=== PATIENT | female | born 1970 | race Caucasian/White ===

== ENCOUNTER 2019-09-13 11:27 | Emergency (ER) | payer BC ==
[2019-09-13] MEDS: Ketorolac 60 MG/2 ML SDV IM ONE (12:01)
[2019-09-13] MEDS: Meclizine 25 MG Tab PO ONE (12:01)
[2019-09-13] MEDS: Ondansetron 4 MG Tab.DIS PO ONE (12:01)
--- NOTE | 2019-09-13 12:02 | EDM.PDOC ---
ED HPI GENERAL MEDICAL PROBLEM - General Chief Complaint: General Stated Complaint: LIGHT HEADED, SHAKY, BLOOD PRESSURE HIGH Time Seen by Provider: 09/13/19 11:40 Source of Information: Reports: Patient History Limitations: Reports: No Limitations - History of Present Illness INITIAL COMMENTS - FREE TEXT/NARRATIVE: Patient presented with the ff health issues to the ED: She was started with z- arin today and too the first dose this morning wh empty stomach and now c/o nausea but no vomiting. Denies any abdominal pain. She also c/o dizziness after having a cold for 2 days. there is no associated fever or chills. Lastl, she c/ o of a flare up of her chronic back oain, she took tylenol without any relief. - Related Data Allergies Allergy/AdvReac Type Severity Reaction Status Date / Time amoxicillin Allergy Other Verified 09/13/19 11:41 Home Meds: Home Meds Albuterol Sulfate [Albuterol Sulfate Hfa] 2 puff IH Q4H PRN 09/13/19 [History] Azithromycin [Zithromax] 500 mg PO DAILY 09/13/19 [History] Cetirizine [ZyrTEC] 10 mg PO DAILY PRN 09/13/19 [History] Ibuprofen [Motrin] 800 mg PO TID #30 tab 09/13/19 [Rx] Meclizine [Antivert] 25 mg PO Q6H PRN #10 tab 09/13/19 [Rx] Ondansetron [Zofran ODT] 4 mg PO Q6H PRN #30 tab.dis 09/13/19 [Rx] Spironolactone [Aldactone] 100 mg PO DAILY 09/13/19 [History] amLODIPine [Norvasc] 2.5 mg PO DAILY 09/13/19 [History] atorvaSTATin [Lipitor] 5 mg PO BEDTIME 09/13/19 [History] Past Medical History HEENT History: Reports: Impaired Vision Cardiovascular History: Reports: High Cholesterol, Hypertension - Past Surgical History GI Surgical History: Reports: Colonoscopy Social & Family History - Family History Family Medical History: Noncontributory - Tobacco Use Smoking Status *Q: Never Smoker Second Hand Smoke Exposure: No - Caffeine Use Caffeine Use: Reports: Soda - Recreational Drug Use Recreational Drug Use: No ED ROS GENERAL - Review of Systems Review Of Systems: See Below Constitutional: Reports: No Symptoms HEENT: Reports: No Symptoms Respiratory: Reports: Cough Cardiovascular: Reports: No Symptoms Endocrine: Reports: No Symptoms GI/Abdominal: Reports: Nausea. Denies: Abdominal Pain, Vomiting Musculoskeletal: Reports: Back Pain Skin: Reports: No Symptoms ED EXAM, GENERAL - Physical Exam Exam: See Below Exam Limited By: No Limitations General Appearance: Alert, WD/WN, No Apparent Distress Ears: Normal External Exam, Normal Canal, Hearing Grossly Normal, Normal TMs Nose: Normal Inspection, Normal Mucosa, No Blood, Nasal Tenderness Throat/Mouth: Normal Inspection, Normal Lips, Normal Teeth, Normal Gums, Normal Oropharynx, Normal Voice Head: Atraumatic, Normocephalic Neck: Normal Inspection, Supple, Non-Tender Respiratory/Chest: No Respiratory Distress, Lungs Clear, Normal Breath Sounds Cardiovascular: Normal Peripheral Pulses, Regular Rate, Rhythm, No Edema, No Gallop, No JVD, No Murmur, No Rub GI/Abdominal: Normal Bowel Sounds, Soft, Non-Tender, No Organomegaly, No Distention Back Exam: Normal Inspection, Full Range of Motion, Muscle Spasm Course - Vital Signs Text/Narrative:: toradol 60 mg IM x1 Meclizine 25 mg po x1 zofran ODT 4 mg po x1 EKG-NSR Last Recorded V/S: Last Vital Signs Temp 36.5 C 09/13/19 11:35 Pulse 77 09/13/19 11:35 Resp 14 09/13/19 11:35 BP 135/68 09/13/19 11:35 Pulse Ox 100 09/13/19 11:35 - Orders/Labs/Meds Meds: Medications Discontinued Medications Generic Name Dose Route Start Last Admin Trade Name Turner PRN Reason Stop Dose Admin Ketorolac Tromethamine 60 mg 09/13/19 11:48 Toradol IM 09/13/19 11:49 ONETIME ONE Meclizine HCl 25 mg 09/13/19 11:49 Antivert PO 09/13/19 11:50 ONETIME ONE Ondansetron HCl 4 mg 09/13/19 11:48 Zofran Odt PO 09/13/19 11:49 ONETIME ONE Departure - Departure Time of Disposition: 11:55 Disposition: Home, Self-Care 01 Condition: Good Clinical Impression: Medication side effect, Chronic back pain, BPPV (benign paroxysmal positional vertigo) - Discharge Information Referrals: Kalli Crane PA [Primary Care Provider] - Additional Instructions: please read discharge instruction on medication side effect. Take any food with full stomach because it can cause an upset stomach and nausea zofran odt 4 mg every 4 hours as needed for nausea ibuprofen 800 mg with tylenol 1000 mg 3times daily as needed for pain meclizine 25 mg every 6 hours as needed for vertigo follow up as needed
== END 2019-09-13 12:20 | disposition home or self-care (01) ==
LOC: FB.ED 11:27
DX: R11.0 Nausea (principal); T36.8X5A Adverse effect of other systemic antibiotics, initial encounter; G89.29 Other chronic pain; M54.9 Dorsalgia, unspecified; H81.10 Benign paroxysmal vertigo, unspecified ear; I10 Essential (primary) hypertension; E78.00 Pure hypercholesterolemia, unspecified; Z88.0 Allergy status to penicillin; Z79.899 Other long term (current) drug therapy
CPT/HCPCS: 96372; 99283; A9270; J1885